=== PATIENT | female | born 1935 | race Caucasian/White ===

== ENCOUNTER 2017-04-06 10:03 | Inpatient (IN) | payer MEDICARE, BC, MEDICAID ==
[2017-04-06] VITALS (7 sets, daily range): BP systolic 94–176; BP diastolic 46–88; PULSE 66–104; TEMP 98.2–98.6
[~2017-04-06] VITALS: Ht 170.2 cm; Wt 65.6 kg
[2017-04-06] MEDS ORDERED: CELEXA40 MG PO (12:43)
[2017-04-06] MEDS ORDERED: SYNTHROID 0.0.025 MG PO (12:44)
[2017-04-06] MEDS ORDERED: MIRALAX 255 GM255 GM PO (12:44)
[2017-04-06] MEDS ORDERED: XARELTO20 MG PO (12:45)
[2017-04-06] MEDS ORDERED: ULTRAM 50MG TAB50 MG PO (12:46)
[2017-04-06] MEDS ORDERED: TENORMIN 2525 MG/TAB PO (12:46)
[2017-04-06] MEDS ORDERED: PRILOSEC 20MG20 MG PO (12:46)
[2017-04-06] MEDS ORDERED: NORVASC 5MG5 MG/TAB PO (12:47)
[2017-04-06] MEDS ORDERED: CITRACAL + D CA1 TAB PO (12:49)
[2017-04-06] MEDS ORDERED: LUNESTA3 MG PO (12:50)
[2017-04-06] MEDS ORDERED: MELATONIN5 M1 SL (12:50)
[2017-04-06] MEDS ORDERED: ALEVE 220MG220 MG PO (12:51)
[2017-04-06 14:16] LABS: INR 1.3 (0.8-3.0); PROTHROMBIN TIME 14.1 SECONDS (9.7-12.8)
[2017-04-06 17:10] LABS: PH 5 (5-8); URINE APPEARANCE Cloudy; URINE BACTERIA Many /hpf; URINE BILIRUBIN Positive (NEGATIVE); URINE BLOOD 1+ (NEGATIVE); URINE COLOR Amber; URINE GLUCOSE Negative (NEGATIVE); URINE KETONE Negative (NEGATIVE); URINE RBC 20-50 /hpf; URINE UROBILINOGEN >=4.0 mg/dL (NEGATIVE)
[2017-04-06 17:12] LABS: URINE WBC >50 /hpf
[2017-04-07] VITALS (10 sets, daily range): BP systolic 99–159; BP diastolic 47–78; PULSE 74–116; TEMP 98.2–98.9
[2017-04-07 05:21] LABS: MEAN CELL VOLUME 86 fl (80.0-100.0); MEAN CORPUSCULAR HGB CONC 31 g/dl (33.0-37.0); MEAN PLATELET VOLUME 11.6 fl (7.4-10.4); PLATELET COUNT 240 K/mm3 (130-400); REDCELL DISTRIBUTION WIDTH-CV 13.5 % (11.5-14.5); WHITE BLOOD COUNT 13.4 K/mm3 (4.8-10.8)
[2017-04-07 05:30] LABS: ADD PATHOLOGY DIFF REVIEW NO; HEMATOCRIT 28.4 % (37.0-47.0); HEMOGLOBIN 8.9 g/dl (12.5-16.0); MEAN CORPUSCULAR HEMOGLOBIN 27 pg (27.0-31.0)
[2017-04-07 05:42] LABS: CALCIUM 8.5 mg/dL (8.4-10.2); CREATININE, serum 0.99 mg/dL (0.52-1.25)
[2017-04-07 06:04] LABS: BAND 5 % (0-10); NEUTROPHILS 91 % (42.0-75.2); PLATELET ESTIMATE NORMAL (NORMAL); TOTAL CELLS COUNTED 100
[2017-04-08] VITALS (11 sets, daily range): BP systolic 117–169; BP diastolic 48–88; PULSE 62–97; TEMP 97.5–98.9
[2017-04-08 07:13] LABS: HEMATOCRIT 25.1 % (37.0-47.0); HEMOGLOBIN 7.9 g/dl (12.5-16.0)
[2017-04-08 15:16] LABS: HEMATOCRIT 23.1 % (37.0-47.0); HEMOGLOBIN 7.4 g/dl (12.5-16.0)
[2017-04-09 01:28] VITALS: BP 153/70; PULSE 80; TEMP 98.4
[2017-04-09 05:13] VITALS: BP 157/79; PULSE 74; TEMP 98.2
[2017-04-09 07:52] LABS: BASO # 0.1 (0.0-0.2); BASO % 0.7 % (0.0-2.0); EOS # 1.1 (0.0-0.7); EOS % 13.4 % (0-4.0); GRAN # 4.2 (1.4-6.5); GRAN % 51.4 % (42.2-75.2); LYMPH # 1.7 (1.2-3.4); MEAN CELL VOLUME 87 fl (80.0-100.0); MEAN CORPUSCULAR HGB CONC 33 g/dl (33.0-37.0); MEAN PLATELET VOLUME 12.1 fl (7.4-10.4); MONO # 1.1 (0.1-0.6); MONO % 12.9 % (1.7-9.3); PLATELET COUNT 251 K/mm3 (130-400); RED BLOOD COUNT 2.97 M/mm3 (4.10-5.30); REDCELL DISTRIBUTION WIDTH-CV 14.1 % (11.5-14.5); WHITE BLOOD COUNT 8.1 K/mm3 (4.8-10.8)
[2017-04-09 07:59] LABS: HEMATOCRIT 25.8 % (37.0-47.0); HEMOGLOBIN 8.4 g/dl (12.5-16.0); MEAN CORPUSCULAR HEMOGLOBIN 28 pg (27.0-31.0)
[2017-04-09] MEDS ORDERED: NORVASC 10MG10 MG PO (08:09)
[2017-04-09] MEDS ORDERED: NORCO 325 MG-51 TAB PO (08:11)
[2017-04-09] MEDS ORDERED: ROXICODONE 55 MG/TAB PO (08:12)
[2017-04-09] MEDS ORDERED: TYLENOL 500MG500 MG PO (08:13)
[2017-04-09] MEDS ORDERED: CEFTIN 250250 MG/TAB PO (08:16)
[2017-04-09 09:30] VITALS: BP 157/79; PULSE 74; TEMP 98.2
== END 2017-04-09 10:20 | disposition swing bed (61) | DRG 481 ==
LOC: SURG 12:11
PROVIDERS: Family Medicine; Internal Medicine; Orthopaedic Surgery; Physician Assistant
PROC: 0QS734Z Reposition Left Upper Femur with Internal Fixation Device, Percutaneous Approach (ICD-10-PCS; principal; 2017-04-06 19:30)
DX: S72.012A Unspecified intracapsular fracture of left femur, initial encounter for closed fracture (principal); S02.40CA Maxillary fracture, right side, initial encounter for closed fracture; N39.0 Urinary tract infection, site not specified; E44.0 Moderate protein-calorie malnutrition; D62 Acute posthemorrhagic anemia; Z66 Do not resuscitate; I10 Essential (primary) hypertension; E03.9 Hypothyroidism, unspecified; F32.9 Major depressive disorder, single episode, unspecified; B96.1 Klebsiella pneumoniae [K. pneumoniae] as the cause of diseases classified elsewhere; I48.0 Paroxysmal atrial fibrillation; W01.190A Fall on same level from slipping, tripping and stumbling with subsequent striking against furniture, initial encounter; Z91.81 History of falling; Z79.02 Long term (current) use of antithrombotics/antiplatelets; Z68.22 Body mass index [BMI] 22.0-22.9, adult
CPT/HCPCS: 99223-AI; 99232-AI; 99239; A9284; C1713; C1776; J0690; J0696; J1100; J1885; J2250; J2270; J2405; J2704; J2765; J3010; J7120; P9016